=== PATIENT | male | born 1955 | race Caucasian/White ===

== ENCOUNTER 2024-01-31 23:14 | Inpatient (IN) | payer MEDICARE, SELFPAY ==
[2024-02-01] MEDS ORDERED: Ipratropium/Albuterol 3 ML NEB NEB PRN (01:37)
[2024-02-01 01:49] LABS: #Basophils 0.03 10x3/uL (0.0-0.2); #Eosinophils Less than 0.03 10x3/uL (0.0-0.7); %Basophils 0.4 % (0.0-1.0); %Lymphocytes 6.4 % (21.0-51.0); %Monocytes 1.1 % (0.0-10.0); %Neutrophils 91.2 % (42.0-75.0); Hemoglobin 17.5 g/dL (14.0-18.0); Mean Corpuscular Hemoglobin 33.5 pg (27.0-31.0); Mean Corpuscular Volume 101.5 fL (78.0-98.0); Mean Platelet Volume 9.1 fL (7.4-10.4); Platelet Count 244 10x3/uL (130-400); RBC Distribution Width 14.4 % (11.5-14.5); Red Blood Cell (RBC) Count 5.22 mill/uL (4.70-6.10)
[2024-02-01] MEDS ORDERED: Ketorolac Tromethamine 30 MG (1 mL) VIAL IVP PRN (01:57)
[2024-02-01] MEDS ORDERED: Ondansetron ODT 4 MG TAB PO PRN (01:57)
[2024-02-01] MEDS ORDERED: Acetaminophen 650 MG Suppository PR PRN (01:59)
[2024-02-01 02:10] LABS: ALT (SGPT) 18 U/L (8-55); AST (SGOT) 23 U/L (5-34); Alkaline Phosphatase 63 U/L (40-110); Anion Gap 22 mmol/L (10-20); BUN (Urea Nitrogen) 22 mg/dL (8.4-25.7); Bilirubin, Total 0.7 mg/dL (0.2-1.2); CK (CPK) 161 U/L (30-200); Calc. Creatinine Clearance 108 mL/min (70-130); Calcium 8.9 mg/dL (7.8-10.44); Carbon Dioxide 19 mmol/L (23-31); Chloride 103 mmol/L (98-107); Estimated GFR 61; Globulin 4.6 g/dL (2.4-3.5); Glucose 318 mg/dL (80-115); Potassium 4.7 mmol/L (3.5-5.1); Protein, Total 7.6 g/dL (5.8-8.1); Sodium 139 mmol/L (136-145)
[2024-02-01] MEDS ORDERED: Dextrose 50% Abboject 50 ML SYRINGE SLOW IVP PRN ×2 (02:34→02:35)
[2024-02-01] MEDS ORDERED: Insulin Lispro 100 UNIT/ML 10 ML VIAL SC PRN ×3 (02:34→02:35)
[2024-02-01] MEDS ORDERED: Dextrose 5% in Water 1,000 ML IV PRN ×2 (02:34→02:35)
[2024-02-01] MEDS ORDERED: Glucagon 1 MG/ML KIT IM PRN ×2 (02:34→02:35)
[2024-02-01] MEDS ORDERED: Electrolyte Replacement Protocol 1 EACH FS PRN (02:35)
[2024-02-01] MEDS: Sodium Chloride 0.9% 1,000 ML IV SCH (03:01)
[2024-02-01] MEDS: Insulin Lispro 100 UNIT/ML 10 ML VIAL SC PRN (03:32)
[2024-02-01] MEDS: methylPREDNISolone Sod Succ 40 MG VIAL IVP SCH ×2 (05:26→20:52)
[2024-02-01] MEDS: hydrALAZINE 20 MG/ML VIAL SLOW IVP PRN (06:07)
[2024-02-01] MEDS: Ipratropium/Albuterol 3 ML NEB NEB SCH (07:04)
[2024-02-01] MEDS: Budesonide 0.25 MG/2 ML NEB INH SCH (07:04)
[2024-02-01] MEDS: Arformoterol 15 MCG/2 ML NEB NEB SCH (07:05)
[2024-02-01] MEDS ORDERED: niCARdipine 25 MG in Sodium Chloride 0.9% 250 ML 250 ML IVPB SCH (08:00)
[2024-02-01] MEDS ORDERED: VANCOMYCIN IVPB PRN (08:37)
[2024-02-01] MEDS ORDERED: cefTRIAXone\\ROCEPHIN 1 GM in Sodium Chloride 0.9% 100 ML IVPB SCH (08:45)
[2024-02-01] MEDS ORDERED: cefTRIAXone\\ROCEPHIN 500 MG in Sodium Chloride 0.9% 0 ML IVPB SCH (08:45)
[2024-02-01 08:57] LABS: Influenza A by NAA Not Detected (NotDetected); Influenza B by NAA Not Detected (NotDetected); SARS-CoV-2 NAA Rapid Test Not Detected (NotDetected)
[2024-02-01] MEDS ORDERED: Enoxaparin 40 MG (0.4 mL) SYRINGE SC SCH (09:00)
[2024-02-01] MEDS ORDERED: Sodium Chloride 0.9% 1,000 ML IV SCH (09:00)
[2024-02-01] MEDS: cefTRIAXone\\ROCEPHIN 2 GM in Sodium Chloride 0.9% 100 ML IVPB SCH (09:02)
[2024-02-01] MEDS: Famotidine/PF 20 mg/2ml Vial SLOW IVP SCH (09:02)
[2024-02-01] MEDS: Enoxaparin 40 MG (0.4 mL) SYRINGE SC SCH (09:03)
[2024-02-01] MEDS: niCARdipine 25 MG in Sodium Chloride 0.9% 250 ML 250 ML IVPB SCH (09:03)
[2024-02-01] MEDS: Aspirin 81 mg Enteric Coated Tablet PO SCH (09:07)
[2024-02-01] MEDS: Famotidine 20 MG TAB PO SCH (09:07)
[2024-02-01] MEDS: Lactated Ringer's 1,000 ML IV SCH (09:22)
[2024-02-01] MEDS: Vancomycin (BATCH) 2.5 GM in Premix 1 BAG IVPB SCH (09:24)
[2024-02-01] MEDS: Insulin Glargine 30 UNITS/0.3 ML VIAL SC SCH (09:58)
[2024-02-01] MEDS: Vancomycin 1 GM in Premix 1 BAG IVPB SCH (20:47)
[2024-02-01] MEDS ORDERED: Vancomycin 1 GM in Sodium Chloride 0.9% 250 ML 250 ML IVPB SCH (21:00)
[2024-02-02] MEDS: Insulin Lispro 100 UNIT/ML 10 ML VIAL SC PRN (00:03)
[2024-02-02 05:04] LABS: Vancomycin, Random 22.7 ug/mL (See Comment)
[2024-02-02] MEDS: Labetalol HCl 100 MG/20 ML VIAL SLOW IVP PRN (13:10)
[2024-02-02] MEDS ORDERED: Vancomycin (BATCH) 1.5 GM in Premix 1 BAG IVPB SCH (20:00)
[2024-02-03] MEDS: methylPREDNISolone Sod Succ 40 MG VIAL IVP SCH (08:00)
[2024-02-04] MEDS: Acetaminophen 325 MG TAB PO PRN (01:43)
[2024-02-04] MEDS: Pantoprazole DR 40 MG TAB PO SCH (09:17)
[2024-02-04] MEDS: FLU (Fluad Triv) TS24-25 (65UP)/MF59C/PF 45 MCG/0.5 ML Syringe IM ONE (19:59)
[2024-02-04] MEDS: Citalopram 20 MG TAB PO SCH (21:55)
[2024-02-04] MEDS: buPROPion 75 MG TAB PO SCH (21:55)
[2024-02-05] MEDS: Ondansetron PF 4 MG/2 ML Vial IVP PRN (01:49)
[2024-02-05 05:48] VITALS: BMI 44.9
[2024-02-05] MEDS: Citalopram 20 MG TAB PO SCH (12:07)
[2024-02-05] MEDS: Bupropion 150 MG SR.TAB PO SCH (12:07)
[2024-02-05] MEDS: Senokot S 8.6-50 MG TAB PO PRN (20:40)
[2024-02-06] MEDS: Melatonin 3 MG TAB PO SCH (00:16)
[2024-02-06 05:38] LABS: #Basophils Less than 0.03 10x3/uL (0.0-0.2); #Eosinophils Less than 0.03 10x3/uL (0.0-0.7); %Basophils 0.1 % (0.0-1.0); %Eosinophils 0.1 % (0.0-10.0); %Lymphocytes 15.8 % (21.0-51.0); %Monocytes 7.6 % (0.0-10.0); %Neutrophils 75.8 % (42.0-75.0); Hematocrit 51.2 % (42.0-52.0); Mean Corpuscular HGB CONC 33.2 g/dL (32.0-36.0); Mean Corpuscular Hemoglobin 33.7 pg (27.0-31.0); Mean Corpuscular Volume 101.4 fL (78.0-98.0); Platelet Count 202 10x3/uL (130-400); Red Blood Cell (RBC) Count 5.05 mill/uL (4.70-6.10)
[2024-02-06 05:56] LABS: Anion Gap 12 mmol/L (10-20); BUN (Urea Nitrogen) 31 mg/dL (8.4-25.7); Calc. Creatinine Clearance 118 mL/min (70-130); Calcium 8.5 mg/dL (7.8-10.44); Carbon Dioxide 27 mmol/L (23-31); Chloride 105 mmol/L (98-107); Estimated GFR 66; Glucose 156 mg/dL (80-115); Potassium 4.1 mmol/L (3.5-5.1); Sodium 140 mmol/L (136-145)
[2024-02-06] MEDS ORDERED: OCTAGAM 10% (10 GM/100 ML VIAL) IVPB SCH (09:00)
[2024-02-06] MEDS: Pyridostigmine Bromide IR 60 MG TAB PO SCH (09:37)
[2024-02-06] MEDS: Privigen 40 GM in Admixture Fee 1 EACH IVPB SCH (11:48)
[2024-02-06 14:17] LABS: Methylmalonic Acid 108 nmol/L (0-378)
[2024-02-06] MEDS: Insulin Glargine 30 UNITS/0.3 ML VIAL SC SCH (19:57)
[2024-02-07 05:54] LABS: #Basophils Less than 0.03 10x3/uL (0.0-0.2); %Basophils 0.1 % (0.0-1.0); %Eosinophils 0.5 % (0.0-10.0); %Lymphocytes 20.3 % (21.0-51.0); %Monocytes 7.8 % (0.0-10.0); %Neutrophils 70.7 % (42.0-75.0); Hematocrit 46.5 % (42.0-52.0); Hemoglobin 15.5 g/dL (14.0-18.0); Mean Corpuscular HGB CONC 33.3 g/dL (32.0-36.0); Mean Corpuscular Hemoglobin 33.1 pg (27.0-31.0); Mean Corpuscular Volume 99.4 fL (78.0-98.0); Mean Platelet Volume 10.2 fL (7.4-10.4); Platelet Count 177 10x3/uL (130-400); RBC Distribution Width 13.7 % (11.5-14.5); Red Blood Cell (RBC) Count 4.68 mill/uL (4.70-6.10)
[2024-02-07 06:07] LABS: ALT (SGPT) 135 U/L (8-55); AST (SGOT) 62 U/L (5-34); Albumin 2.4 g/dL (3.4-4.8); Alkaline Phosphatase 57 U/L (40-110); Anion Gap 10 mmol/L (10-20); BUN (Urea Nitrogen) 32 mg/dL (8.4-25.7); Bilirubin, Total 0.8 mg/dL (0.2-1.2); Calc. Creatinine Clearance 136 mL/min (70-130); Calcium 8.3 mg/dL (7.8-10.44); Carbon Dioxide 28 mmol/L (23-31); Chloride 103 mmol/L (98-107); Estimated GFR 79; Globulin 4.2 g/dL (2.4-3.5); Glucose 154 mg/dL (80-115); Magnesium 2.1 mg/dL (1.6-2.6); Potassium 3.7 mmol/L (3.5-5.1); Protein, Total 6.6 g/dL (5.8-8.1); Sodium 137 mmol/L (136-145)
[2024-02-07] MEDS: Albuterol 2.5 MG (3 mL) NEB NEB PRN (11:07)
[2024-02-07] MEDS: methylPREDNISolone Sod Succ/PF 125 MG/2 ML VIAL IVP SCH (12:19)
[2024-02-07] MEDS: hydrALAZINE 25 MG TAB PO SCH ×2 (12:24→20:14)
[2024-02-07 17:22] LABS: Actual Bicarbonate (HCO3a) 24.8 mEq/L (22-28); Base Excess (BEa) 1.8 mEq/L (-2.0 to +3.0); CO2 Tension 34.6 mmHg (35.0-45.0); Calcium, Ionized (arterial) 1.16 mmol/L (1.12-1.30); Carboxyhemoglobin (COHb) 1.1 gm% (0.0-3.0); Hematocrit-ABG 51 % (42.0-52.0); Hemoglobin (Hb) 17.2 g/dL (14.0-18.0); Potassium - ABG Lab 4.44 mmol/L (3.70-5.30); pH, Arterial 7.474 (7.35-7.45)
[2024-02-07 18:27] LABS: O2 Tension (PaO2), arterial 56.6 mmHg (> 80.0)
[2024-02-07 18:29] LABS: Puncture Site Left Radial artery
[2024-02-09 05:45] LABS: #Basophils Less than 0.03 10x3/uL (0.0-0.2); #Eosinophils Less than 0.03 10x3/uL (0.0-0.7); %Basophils 0.3 % (0.0-1.0); %Eosinophils 0.3 % (0.0-10.0); %Lymphocytes 30.6 % (21.0-51.0); %Monocytes 9.3 % (0.0-10.0); Hematocrit 46.2 % (42.0-52.0); Hemoglobin 15.6 g/dL (14.0-18.0); Mean Corpuscular HGB CONC 33.8 g/dL (32.0-36.0); Mean Corpuscular Hemoglobin 33.5 pg (27.0-31.0); Mean Corpuscular Volume 99.4 fL (78.0-98.0); Mean Platelet Volume 10.1 fL (7.4-10.4); Platelet Count 155 10x3/uL (130-400); RBC Distribution Width 13.5 % (11.5-14.5); Red Blood Cell (RBC) Count 4.65 mill/uL (4.70-6.10)
[2024-02-09 06:25] LABS: Anion Gap 13 mmol/L (10-20); BUN (Urea Nitrogen) 26 mg/dL (8.4-25.7); Calc. Creatinine Clearance 139 mL/min (70-130); Calcium 8.1 mg/dL (7.8-10.44); Carbon Dioxide 24 mmol/L (23-31); Chloride 105 mmol/L (98-107); Estimated GFR 81; Glucose 145 mg/dL (80-115); Potassium 3.5 mmol/L (3.5-5.1); Sodium 138 mmol/L (136-145)
[2024-02-09] MEDS ORDERED: Electrolyte Replacement Protocol FS PRN (06:45)
[2024-02-09] MEDS: Potassium Chloride 20 MEQ TAB PO SCH (08:37)
[2024-02-09 11:18] VITALS: TEMP 98.1
[2024-02-09 11:55] VITALS: BP 163/74
== END 2024-02-09 12:15 | DRG 56 ==
LOC: CCU 02-01 01:20 → IMCU/EMU 02-03 11:33 → T4-A 02-05 14:04
PROVIDERS: ADMIT Internal Medicine; ATTEND Internal Medicine
PROC: 5A09357 Assistance with Respiratory Ventilation, Less than 24 Consecutive Hours, Continuous Positive Airway Pressure (ICD-10-PCS; 2024-02-01)
PROC: 4A033R1 Measurement of Arterial Saturation, Peripheral, Percutaneous Approach (ICD-10-PCS; principal; 2024-02-07)
DX: G70.00 Myasthenia gravis without (acute) exacerbation (principal); G93.41 Metabolic encephalopathy; J69.0 Pneumonitis due to inhalation of food and vomit; J96.22 Acute and chronic respiratory failure with hypercapnia; J44.1 Chronic obstructive pulmonary disease with (acute) exacerbation; Z68.41 Body mass index [BMI] 40.0-44.9, adult; F32.A Depression, unspecified; E11.9 Type 2 diabetes mellitus without complications; Z88.8 Allergy status to other drugs, medicaments and biological substances; F17.210 Nicotine dependence, cigarettes, uncomplicated; R53.81 Other malaise; E66.01 Morbid (severe) obesity due to excess calories; E11.65 Type 2 diabetes mellitus with hyperglycemia; F39 Unspecified mood [affective] disorder
CPT/HCPCS: 36415; 36416; 36600; 71045; 80048; 80053; 80202; 82550; 82607; 82805; 83090; 83519; 83735; 83921; 85025; 87081; 93970; 94640; 94660; J0360; J0696; J1459; J1650; J1815; J2405; J2919; J3370; J3370-JW; J3490; J7030; J7050; J7120; J7611; J7620; J7626